=== PATIENT | male | born 1995 | race Caucasian/White ===

== ENCOUNTER 2019-04-19 15:44 | Emergency (ER) | payer OTHER ==
[~2019-04-19] VITALS: Ht 177.8 cm; Wt 131.5 kg
[2019-04-19 18:06] LABS: Basophils # (auto) 0 uL; Basophils % (auto) 0.5 % (0.0-2.0); Hemoglobin 16.6 g/dL (13.5-17.5); Lymphocytes # (auto) 3.1 uL; Monocytes # (auto) 0.4 uL; White Blood Cell 7.7 10^3/uL (4.4-10.8)
[2019-04-19 18:08] LABS: Eosinophils # (auto) 0.2 uL; Hematocrit 48.1 % (41.0-53.0); INR 1.13 (0.9-1.15); Lymphocytes % (auto) 40.5 % (10.0-50.0); Mean Corpuscular Hemoglobin 27.7 pg (28.0-32.0); Mean Corpuscular Hgb Conc. 34.4 g/dL (32.0-36.0); Mean Corpuscular Volume 80.4 fL (80.0-100.0); Monocytes % (auto) 5.7 % (0.0-12.0); Neutrophils # (auto) 3.9 uL; Neutrophils % (auto) 51.3 % (37.0-80.0); Nucleated Red Blood Cells % 0.3 %; Partial Thromboplastin Time 27.7 sec (23.64-32.05); Platelet Count (auto) 344 10^3/uL (140-450); Red Blood Cells 5.99 10^6/uL (4.5-5.90); Red Cell Distribution Width 13.7 % (11.8-14.3)
[2019-04-19 18:24] LABS: Albumin 3.6 g/dL (3.4-5.0); Anion Gap 4 (5-15); Blood Urea Nitrogen 16 mg/dL (7-18); Carbon Dioxide 24 mmol/L (21-32); Chloride 113 mmol/L (98-107); Glucose 95 mg/dL (74-106); Potassium 4.2 mmol/L (3.5-5.1); Sodium 141 mmol/L (136-145)
[2019-04-19 18:29] LABS: Alanine Aminotransferase 51 U/L (16-61); Alkaline Phosphatase 87 U/L (45-117); Aspartate Aminotransferase 25 U/L (15-37); BUN/Creatinine Ratio 17.2; Bilirubin, Total 0.3 mg/dL (0.2-1.0); GFR African American 128 mL/min; GFR Non-African American 106 mL/min; Total Protein 7.5 g/dL (6.4-8.2)
[2019-04-20 00:30] VITALS: BP 124/60
== END 2019-04-20 00:41 | disposition home or self-care (01) ==
LOC: EDBD 15:44 → EDUNIT# 15:44 → ER 15:44
DX: R07.89 Other chest pain (principal); K21.9 Gastro-esophageal reflux disease without esophagitis; Z88.2 Allergy status to sulfonamides
CPT/HCPCS: 36415; 80053; 83880; 84484; 85025; 85379; 85610; 85730; 93005